=== PATIENT | female | born 1990 | race Caucasian/White ===

== ENCOUNTER 2022-08-26 14:04 | Emergency (ER) | payer MEDICAID ==
[~2022-08-26] VITALS: Ht 157.5 cm; Wt 71.7 kg
[2022-08-26 14:14] VITALS: BP 130/88
--- NOTE | 2022-08-26 15:00 | NUR ---
31 Y/O FEMALE BIB BROTHER C/O CHEST PAIN RADIATING TO THE RIGHT SHOULDER/ARM X3 WEEKS WITH COUGH, DENIES ANY ABD PAIN, SOB NKA PMH: DENIES
[2022-08-26] MEDS ORDERED: KETOROLAC 30 MG/ML VIAL IM ONE (15:30)
[2022-08-26] MEDS ORDERED: IBUP-2213 PO (15:36)
--- NOTE | 2022-08-26 15:53 | NUR ---
Patient discharged with v/s stable. Written and verbal after care instructions ABOUT NON-SPECIFIC CHEST PAIN AND SHOULDER SPRAIN given and explained. Patient alert, oriented and verbalized understanding of instructions. Ambulatory with steady gait. All questions addressed prior to discharge. ID band removed. Patient advised to follow up with PMD. Rx of MOTRIN given. Patient educated on indication of medication including possible reaction and side effects. Opportunity to ask questions provided and answered.
== END 2022-08-26 15:53 | disposition home or self-care (01) ==
LOC: MED 14:04
DX: S46.911A Strain of unspecified muscle, fascia and tendon at shoulder and upper arm level, right arm, initial encounter (principal); R07.89 Other chest pain; Z90.710 Acquired absence of both cervix and uterus; X58.XXXA Exposure to other specified factors, initial encounter; Y93.89 Activity, other specified; Y92.89 Other specified places as the place of occurrence of the external cause; Y99.8 Other external cause status
CPT/HCPCS: 93005; 96372; 99283; J1885

== ENCOUNTER 2024-03-24 22:15 | Emergency (ER) | payer MEDICAID ==
[~2024-03-24] VITALS: Ht 154.9 cm; Wt 75.3 kg
[~2024-03-24 22:15] MED LIST: IBUP-2213 PO
[2024-03-24 22:26] VITALS: BP 132/79; PULSE 97; RESP 20; TEMP 98.2; O2SAT 98
[2024-03-25 00:13] LABS: FLU A ANTIGEN negative (NEGATIVE); FLU B ANTIGEN NEGATIVE (NEGATIVE)
[2024-03-25 00:58] VITALS: BP 124/77; PULSE 81; RESP 16; TEMP 98.2; O2SAT 98
== END 2024-03-25 00:58 | disposition home or self-care (01) ==
LOC: MED 22:15
DX: J06.9 Acute upper respiratory infection, unspecified (principal); Z20.822 Contact with and (suspected) exposure to COVID-19; R07.89 Other chest pain; J45.909 Unspecified asthma, uncomplicated; Z90.710 Acquired absence of both cervix and uterus; Z79.899 Other long term (current) drug therapy
CPT/HCPCS: 71046; 99284